=== PATIENT | male | born 1945 | race African-American/Black ===

== ENCOUNTER 2025-02-18 14:31 | Emergency (ER) | payer OTHER ==
[2025-02-18 14:37] VITALS: BP 120/73; PULSE 71; RESP 16; TEMP 97.4; BMI 29.8
[2025-02-18 16:20] LABS: ABSOLUTE IMMATURE GRANULOCYTES 0.03 x10^3/uL (0.0-0.031); BASOPHILS # 0.02 x10^3/uL (0.01-0.08); EOSINOPHIL % 2.6 % (0.8-7.0); EOSINOPHILS # 0.23 x10^3/uL (0.04-0.54); MCHC 31.3 g/dl (32.3-36.5); MEAN CELL VOLUME 91.9 fl (79.0-92.2); MEAN PLT VOLUME 12.2 fl (9.4-12.4); MONOCYTE # 0.53 x10^3/uL (0.30-0.82); MONOCYTE % 6.0 % (5.3-12.2); RDW 12.5 % (12.2-16.6)
[2025-02-18 17:02] LABS: CO2 30.0 mmol/L (21-32); GLUCOSE,RANDOM 300.0 mg/dL (74-106)
[2025-02-18 17:05] LABS: CREATININE 1.2 mg/dL (0.55-1.3); SGOT/AST 14.0 U/L (15-37); SGPT/ALT 34.0 U/L (13-61)
[2025-02-18 17:07] LABS: TOT PROT 7.9 g/dl (6.4-8.2)
[2025-02-18 17:08] LABS: ALK PHOS 150.0 U/L (45-117)
[2025-02-18] MEDS ORDERED: HALOPERIDOL LACTATE 5 MG/ML ONE (18:01)
[2025-02-18] MEDS: HALOPERIDOL LACTATE 5 MG/ML IM ONE ×2 (18:06→18:07)
== END 2025-02-18 21:37 ==
LOC: JER 14:31
PROC: 3E023GC Introduction of Other Therapeutic Substance into Muscle, Percutaneous Approach (ICD-10-PCS; principal; 2025-02-18)
DX: R22.0 Localized swelling, mass and lump, head (principal); W19.XXXA Unspecified fall, initial encounter
CPT/HCPCS: 36415; 70450-TC; 80053; 83735; 85025; 86850; 86900; 86901; 93005; 93010; 99285-25